=== PATIENT | male | born 1970 | race Two or more races ===

== ENCOUNTER 2023-11-28 15:14 | Emergency (ER) | payer MEDICAID ==
[~2023-11-28] VITALS: Ht 167.6 cm; Wt 72.1 kg
[2023-11-28] MEDS: IV NORMAL SALINE 1000 ML BAG IV ONE (16:04)
[2023-11-28 16:17] LABS: CALCIUM 8.1 mg/dL (8.5-10.1); CARBON DIOXIDE 26 mmol/L (21-32); CHLORIDE 110 mmol/L (98-107); CREATININE 0.6 mg/dL (0.6-1.3); GLUCOSE 104 mg/dL (74-106); SODIUM SERUM 147 mmol/L (136-145); UREA NITROGEN, BLOOD 4 mg/dL (7-18)
[2023-11-28 16:19] LABS: AMMONIA 24 umol/L (11-32)
[2023-11-28 16:23] LABS: ALANINE AMINOTRANSFERASE 47 U/L (16-63); ALBUMIN 3.3 g/dL (3.4-5.0); ALKALINE PHOSPHATASE 51 U/L (50-136); ASPARTATE AMINOTRANSFERASE 52 U/L (15-37); BILIRUBIN,DIRECT 0.1 mg/dL (0.0-0.2); BILIRUBIN,TOTAL 0.3 mg/dL (0.2-1.0); TOTAL PROTEIN, SERUM 7.2 g/dL (6.4-8.2)
[2023-11-28 16:29] LABS: BASOPHILS % (AUTO) 0.8 % (0.0-2.0); EOSINOPHILS # (AUTO) 0.2 K/uL (0.0-0.7); EOSINOPHILS % (AUTO) 3.7 % (0.0-7.0); HEMATOCRIT 41.2 % (36.7-47.1); HEMOGLOBIN 14.1 g/dL (12.5-16.3); LYMPHOCYTES # (AUTO) 1.8 K/uL (0.8-4.8); LYMPHOCYTES % (AUTO) 35.7 % (20.5-51.5); MEAN CORPUSCULAR HEMOGLOBIN 32.1 uug (23.8-33.4); MEAN CORPUSCULAR HGB CONC 34 g/dL (32.5-36.3); MEAN CORPUSCULAR VOLUME 93.7 fL (73.0-96.2); MONOCYTES # (AUTO) 0.5 K/uL (0.1-1.30); MONOCYTES % (AUTO) 10.5 % (0.0-11.0); NEUTROPHILS # (AUTO) 2.5 K/uL (1.8-8.9); NEUTROPHILS % (AUTO) 49.3 % (38.5-71.5); PLATELET COUNT (AUTO) 278 K/uL (152-348); RED CELL DISTRIBUTION WIDTH 14.2 % (12.1-16.2); WHITE BLOOD COUNT (AUTO) 5.1 K/uL (3.6-10.2)
[2023-11-28 16:51] LABS: ETHANOL 308 MG/DL (0-10)
[2023-11-28 18:18] LABS: ACETAMINOPHEN < 2.0 ug/mL (10-30)
[2023-11-28] MEDS ORDERED: THIAMINE HCL 200 MG/2 ML VIAL ONE (18:58)
[2023-11-28] MEDS: THIAMINE HCL 200 MG/2 ML VIAL IV ONE (19:08)
[2023-11-28] MEDS: IV D5W-0.45% NS 1000 ML BAG IV ONE (19:08)
[2023-11-28] MEDS: IV NS 1000 ML 1,000 ML IV ONE (19:15)
[2023-11-29 00:18] VITALS: BP 136/86; O2SAT 96
== END 2023-11-28 22:15 | disposition home or self-care (01) ==
LOC: ER 15:17 → EDBD 15:17 → ER 22:15
DX: F10.129 Alcohol abuse with intoxication, unspecified (principal); Y90.0 Blood alcohol level of less than 20 mg/100 ml
CPT/HCPCS: 80076; 80048; 82140; 83735; 85025; 36415; 93005; 71045; 99285; 96361; 96374; 80299; 80320 ×2; 80179; J3411; J7040 ×2; A4606; A4663; G0480